=== PATIENT | female | born 2000 | race Caucasian/White ===

== ENCOUNTER 2021-04-25 11:15 | Outpatient (CLI) | payer OTHER ==
[2021-04-25 14:10] LABS: BHCG - Serum Negative (NEGATIVE); Pregs Control Background? CLEAR/WHITE (CLR/WHITE); Pregs Control Bar Appear? YES (CONTROL BAR)
[2021-04-25 14:15] LABS: #Eosinphils 0.3 10x3/uL (0.0-0.5); #Monocytes 0.4 10x3/uL (0.0-1.1); #Neutrophils 4.1 10x3/uL (1.5-8.4); %Basophils 0.6 % (0.0-2.0); %Eosinophils 3.7 % (0.0-6.0); %Lymphocytes 30.6 % (18.0-47.0); %Monocytes 5.3 % (0.0-10.0); %Neutrophils 59.5 % (40.0-75.0); Hemoglobin 13.4 g/dL (12.0-15.5); Mean Corpuscular HGB CONC 33.5 g/dL (32.0-36.0); Mean Corpuscular Hemoglobin 27.9 pg (27.0-33.0); Mean Corpuscular Volume 83.3 fl (81.6-98.3); Mean Platelet Volume 11.1 fl (7.4-10.4); Platelet Count 286 10x3/uL (150-450); RBC Distribution Width 12.3 % (11.5-14.5); White Blood Cell (WBC) Count 6.8 10x3/uL (3.5-10.5)
[2021-04-25 22:21] LABS: SARS-CoV-2 PCR by NAA Not Detected (NotDetected)
== END 2021-04-25 11:16 | disposition home or self-care (01) ==
LOC: LABBT 11:15
PROVIDERS: ATTEND Orthopaedic Surgery
DX: Z01.812 Encounter for preprocedural laboratory examination (principal); M24.811 Other specific joint derangements of right shoulder, not elsewhere classified; Z20.822 Contact with and (suspected) exposure to COVID-19
CPT/HCPCS: 84703; 85025; U0003; U0005

== ENCOUNTER 2021-04-27 06:03 | Day surgery (SDC) | payer OTHER ==
[2021-04-26 09:19] VITALS: BMI 27.2
[2021-04-27] MEDS ORDERED: Midazolam HCl 2 mg/2 ml Vial ONE (06:30)
[2021-04-27] MEDS ORDERED: Fentanyl 100 MCG/2 ML VIAL ONE ×2 (06:30→08:00)
[2021-04-27] MEDS ORDERED: ceFAZolin 2 GM/DEX 5% 100 ML BAG ONE (06:56)
[2021-04-27] MEDS ORDERED: Vancomycin 1 GM/200 ML BAG ONE (06:56)
[2021-04-27] MEDS ORDERED: Ondansetron PF 4 MG/2 ML Vial ONE ×2 (07:48→10:41)
[2021-04-27] MEDS ORDERED: Ropivacaine 0.5% HCl/PF (150 MG/30 ML VIAL) ONE (07:48)
[2021-04-27] MEDS ORDERED: Ketorolac Tromethamine 30 MG/ML VIAL ONE (07:48)
[2021-04-27] MEDS ORDERED: PROPOFOL 200 MG/20 ML VIAL ONE (07:48)
[2021-04-27] MEDS ORDERED: PHENYLEPHRINE-NS 100 MCG/ML 10 ML SYRINGE ONE ×2 (07:48→08:58)
[2021-04-27] MEDS ORDERED: Rocuronium Bromide 10 MG/ML (10ML VIAL) ONE (07:48)
[2021-04-27] MEDS ORDERED: Ropivacaine 2% HCl/PF (20 MG/10 ML VIAL) ONE (07:48)
[2021-04-27] MEDS ORDERED: Dexamethasone 20 MG/5 ML VIAL ONE (07:48)
[2021-04-27] MEDS ORDERED: HYDROcodone/Acetaminophen 5/325 mg Tablet PO PRN ×4 (09:15→10:30)
[2021-04-27] MEDS ORDERED: Zolpidem Tartrate 5 MG TAB PO PRN ×2 (09:15→10:30)
[2021-04-27] MEDS ORDERED: traMADol HCl 50 MG TAB PO PRN ×4 (09:15→10:30)
[2021-04-27] MEDS ORDERED: Ketorolac Tromethamine 30 MG/ML VIAL IVP PRN ×2 (09:15→10:30)
[2021-04-27] MEDS ORDERED: Promethazine HCl 25 MG/ML VIAL IM PRN ×2 (09:15→10:30)
[2021-04-27] MEDS ORDERED: Ropivacaine 0.2% 550 ML 550 ML NERVE BLCK SCH ×2 (09:15→10:30)
[2021-04-27] MEDS ORDERED: Ondansetron PF 4 MG/2 ML Vial IVP PRN ×2 (09:15→10:30)
[2021-04-27] MEDS ORDERED: Scopolamine 1.5 mg/72 hour Patch ONE ×2 (09:29→09:31)
[2021-04-27] MEDS ORDERED: SUGAMMADEX SODIUM 200 MG/2 ML VIAL ONE (09:39)
[2021-04-27] MEDS ORDERED: Promethazine HCl 25 MG/ML VIAL ONE (12:33)
[2021-04-27] MEDS ORDERED: Ondansetron ODT 4 MG TAB ONE (13:52)
== END 2021-04-27 14:00 | disposition home or self-care (01) ==
LOC: SDC 06:03
PROVIDERS: ATTEND Orthopaedic Surgery
PROC: 3E0T3BZ Introduction of Anesthetic Agent into Peripheral Nerves and Plexi, Percutaneous Approach (ICD-10-PCS; principal; 2021-04-27)
PROC: 0RQJ0ZZ Repair Right Shoulder Joint, Open Approach (ICD-10-PCS; principal; 2021-04-27)
DX: M24.811 Other specific joint derangements of right shoulder, not elsewhere classified (principal); Z98.890 Other specified postprocedural states
CPT/HCPCS: 84703; 85025; A4306; C1713; J1100; J1885; J2250; J2405; J2550; J2704; J2795; J3010; J3370; Q0162; U0003; U0005